=== PATIENT | male | born 1985 | race Caucasian/White ===

== ENCOUNTER 2017-01-03 02:12 | Emergency (ER) | payer MEDICAID, OTHER ==
[~2017-01-03] VITALS: Ht 177.8 cm; Wt 89.3 kg
[~2017-01-03 02:12] MED LIST: IBUP800T23 PO; LORTA5 PO; MMW SSP; PENI500T PO
[2017-01-03 02:25] VITALS: BP 133/91; PULSE 77; RESP 14; TEMP 98.2; O2SAT 98
[2017-01-03] MEDS ORDERED: CLINDAMYCIN INJ 900 MG in SODIUM CHLORIDE 0.9% INJ 100 ML IV ONE (02:45)
[2017-01-03 03:04] LABS: BASOPHIL # 0.1 TH/MM3 (0-0.2); BASOPHIL % 0.8 % (0.0-2.0); EOSINOPHIL # 0.3 TH/MM3 (0-0.4); EOSINOPHIL % 2.2 % (0.0-4.0); HEMATOCRIT 44.2 % (39.0-51.0); LYMPH % 12.7 % (9.0-44.0); LYMPHOCYTE # 1.5 TH/MM3 (1.0-4.8); MEAN CELL VOLUME 87.7 FL (80.0-100.0); MEAN CORPUSCULAR HEMOGLOBIN 29.8 PG (27.0-34.0); MONO % 5.5 % (0.0-8.0); NEUT % 78.8 % (16.0-70.0); PLATELET COUNT 240 TH/MM3 (150-450); RED BLOOD COUNT 5.04 MIL/MM3 (4.50-5.90); RED CELL DISTRIBUTION WIDTH 13.2 % (11.6-17.2); WHITE BLOOD COUNT 11.5 TH/MM3 (4.0-11.0)
[2017-01-03 03:05] LABS: HEMO FLAGS DIFF FINAL
[2017-01-03 03:15] LABS: POTASSIUM 3.5 MEQ/L (3.5-5.1)
[2017-01-03 03:18] LABS: BICARBONATE 27.9 MEQ/L (21.0-32.0)
--- NOTE | 2017-01-03 03:37 | RADRPT ---
EXAM DATE/TIME: 01/03/2017 03:01 [place] COMPARISON: No previous studies available for comparison. INDICATIONS : Scrape to anterior knee at [place], redness and swelling spreading. MEDICAL HISTORY : None. SURGICAL HISTORY : None. ENCOUNTER: Initial ACUITY: 1 day PAIN SCORE: 4/10 LOCATION: Right anterior and medial knee. FINDINGS: 4 views right knee. Bone alignment within normal limits. No evidence of fracture. No evidence of zeke nt narrowing. No evidence of joint effusion. Soft tissue edema is seen anterior to the patellar tendo n. CONCLUSION: Soft tissue edema anterior to the patellar tendon. Peter León MD on January 03, 2017 at 3:35 Board Certified Radiologist. This report was verified electronically.
[2017-01-03] MEDS ORDERED: IBUP800T23 PO (03:41)
[2017-01-03] MEDS ORDERED: BACT800T5 PO (03:41)
[2017-01-03] MEDS ORDERED: CLIN1CAP5 PO (03:41)
--- NOTE | 2017-01-03 03:43 | PD ---
HPI Chief Complaint: Skin Problem Time Seen by Provider: 02:44 Travel History International Travel<30 days: No Contact w/Intl Traveler<30days: No Traveled to known affect area: No History of Present Illness HPI 31-year-old male presents to the emergency department for complaint of right knee injury due to abrasion 2 weeks ago with development of redness and swelling and pain 4 days. No ascending erythema or lymphadenopathy. No fever or chills. Patient is not diabetic. Tetanus status is current. Patient rates his pain as 6-7/10 in intensity. Patient has taken no medications. PFSH Past Medical History Narrative Medical Negative PMH/PSH; no substance use; occasional alcohol and tobacco: nursing notes reviewed Medical History: Denies Significant Hx Diminished Hearing: No Immunizations Current: Yes Tetanus Vaccination: < 5 Years Influenza Vaccination: Yes Past Surgical History Surgical History: No Previous Surgery Social History Alcohol Use: Yes (OCC) Tobacco Use: No Substance Use: No Allergies-Medications (Allergen,Severity, Reaction): Coded Allergies: No Known Allergies (Unverified , 01/03/17) Reported Meds & Prescriptions Reported Meds & Active Scripts Active Ibuprofen 800 Mg Tab 800 Mg PO Q8H PRN Clindamycin (Clindamycin HCl) 150 Mg Cap 300 Mg PO Q6H 7 Days Bactrim DS (Sulfamethoxazole-Trimethoprim) 800-160 Mg Tab 1 Tab PO BID Review of Systems Except as stated in HPI: all other systems reviewed are Neg General / Constitutional: No: Fever, Chills HENT: No: Congestion Cardiovascular: No: Chest Pain or Discomfort Respiratory: No: Shortness of Breath Gastrointestinal: No: Nausea, Vomiting Genitourinary: No: Frequency, Dysuria, Decreased Urinary Output Musculoskeletal: Positive: Pain (right anterior knee), No: Myalgias, Arthralgias, Limited ROM Skin: Positive Rash (abrasion right knee now with redness and swelling) Neurologic: No: Weakness Psychiatric: No: Anxiety Hematologic/Lymphatic: No: Lymph Node Enlargement Physical Exam Narrative GENERAL: Well developed well-nourished male in no acute distress no respiratory distress SKIN: Warm and dry. HEAD: Normocephalic. EYES: No scleral icterus. No injection or drainage. NECK: Supple, trachea midline. No JVD or lymphadenopathy. CARDIOVASCULAR: Regular rate and rhythm without murmurs, gallops, or rubs. RESPIRATORY: Breath sounds equal bilaterally. No accessory muscle use. GASTROINTESTINAL: Abdomen soft, non-tender, nondistended. MUSCULOSKELETAL: No cyanosis, or edema. Right knee attention prepatellar erythema 7 cm x 5 cm with mild edema nonfluctuant no effusion no joint pain on range of motion no joint instability with provocative testing mild area of erythema noted to the medial aspect of the right knee no ascending erythema or inguinal lymphadenopathy. Distally extremity is neurovascular tendon intact. BACK: Nontender without obvious deformity. No CVA tenderness. Data Data Last Documented VS Vital Signs Date Time Temp Pulse Resp B/P Pulse Ox O2 Delivery O2 Flow Rate FiO2 01/03/17 02:34 77 18 01/03/17 02:25 98.2 133/91 98 Orders Basic Metabolic Panel (Bmp) (01/03/17 02:44) Complete Blood Count With Diff (01/03/17 02:44) Iv Access Insert/Monitor (01/03/17 02:44) Clindamycin Inj (Cleocin Inj) (01/03/17 02:45) Knee, Complete (4vws) (01/03/17 ) Labs Laboratory Tests Test 01/03/17 02:50 White Blood Count 11.5 TH/MM3 Red Blood Count 5.04 MIL/MM3 Hemoglobin 15.0 GM/DL Hematocrit 44.2 % Mean Corpuscular Volume 87.7 FL Mean Corpuscular Hemoglobin 29.8 PG Mean Corpuscular Hemoglobin 34.0 % Concent Red Cell Distribution Width 13.2 % Platelet Count 240 TH/MM3 Mean Platelet Volume 8.4 FL Neutrophils (%) (Auto) 78.8 % Lymphocytes (%) (Auto) 12.7 % Monocytes (%) (Auto) 5.5 % Eosinophils (%) (Auto) 2.2 % Basophils (%) (Auto) 0.8 % Neutrophils # (Auto) 9.0 TH/MM3 Lymphocytes # (Auto) 1.5 TH/MM3 Monocytes # (Auto) 0.6 TH/MM3 Eosinophils # (Auto) 0.3 TH/MM3 Basophils # (Auto) 0.1 TH/MM3 CBC Comment DIFF FINAL Differential Comment Sodium Level 141 MEQ/L Potassium Level 3.5 MEQ/L Chloride Level 105 MEQ/L Carbon Dioxide Level 27.9 MEQ/L Anion Gap 8 MEQ/L Blood Urea Nitrogen 8 MG/DL Creatinine 0.92 MG/DL Estimat Glomerular Filtration 95 ML/MIN Rate Random Glucose 93 MG/DL Calcium Level 8.9 MG/DL MDM Medical Decision Making Medical Screen Exam Complete: Yes Emergency Medical Condition: Yes Medical Record Reviewed: Yes Interpretation(s) CBC & BMP Diagram 01/03/17 02:50 Vital Signs Date Time Temp Pulse Resp B/P Pulse Ox O2 Delivery O2 Flow Rate FiO2 01/03/17 02:34 77 18 01/03/17 02:25 98.2 77 14 133/91 98 Differential Diagnosis Cellulitis, bursitis, retained foreign body; intact range of motion without evidence for effusion or septic arthritis Narrative Course IV access obtained specimens questions for resulting imaging studies ordered patient administered IV clindamycin Tetanus status current Patient stable for outpatient management Diagnosis Primary Impression: Prepatellar bursitis of right knee Referrals: Primary Care Physician 2 days Patient Instructions: General Instructions Departure Forms: Tests/Procedures, Work Release Special Instructions: no work x 2 days Additional Instructions: Complete course of antibiotic as prescribed Follow-up with primary care provider No work 2 days Elevate right lower extremity Monitor temperature every 4 hours with thermometer and take as needed acetaminophen/Tylenol every 4 hours for fever 100.4F or greater and/or ibuprofen/Advil/Motrin 800 mg as often as every 8 hours as needed for fever 100.4F or greater or for pain associated inflammation Return the emergency department for any concerns or change in condition Med/Other Pt SpecificInfo: Prescription(s) given Scripts Ibuprofen 800 Mg [id number] Mg PO Q8H PRN (PAIN GREATER THAN 5) #15 TAB Ref 0 Prov:Yumiko Dyer MD 01/03/17 Clindamycin 150 Mg [id number] Mg PO Q6H 7 Days Ref 0 Prov:Yumiko Dyer MD 01/03/17 Sulfamethoxazole-Trimethoprim (Bactrim DS)800-160 Mg Tab1 Tab PO BID #20 TAB Ref 0 Prov:Yumiko Dyer MD 01/03/17 Disposition: 01 DISCHARGE HOME Condition: Stable Yumiko Dyer MD Jan 03, 2017 03:43
[2017-01-03 04:07] VITALS: BP 118/78; PULSE 72; RESP 18; O2SAT 98
== END 2017-01-03 04:09 | disposition home or self-care (01) ==
LOC: PHED 02:12
DX: M70.41 Prepatellar bursitis, right knee (principal); M25.561 Pain in right knee
CPT/HCPCS: 73564; 80048; 85025; 96365